=== PATIENT | male | born 1955 | race Caucasian/White ===

== ENCOUNTER → 2018-03-05 | Outpatient (CLI) | payer BC ==
[~2018-03-05] MED LIST: METF10007 PO; OMEP20TA8 PO; SIMV40TA3 PO
--- NOTE | 2018-03-05 14:03 | RAD ---
EXAM: Lumbar spine, 3 views; pelvis and bilateral hips, 5 views. HISTORY: Pain. COMPARISON: None. FINDINGS: Lumbar spine: 3 views of the lumbar spine are obtained. There are 6 nonrib-bearing lumbar vertebral segments or hypoplastic T12 ribs with 5 lumbar segments. For the purposes of this dictation, the last lumbar segment will be considered L5. There is mild levoscoliosis centered at L3. There is degenerative endplate remodeling with disc space narrowing and osteophytosis primarily along the right aspect of L3-L4, corresponding with the level of maximum scoliotic curvature. There is endplate remodeling and Schmorl's node formation at multiple levels. There is facet arthropathy at multiple levels. There are cholecystectomy clips. Pelvis and bilateral hips: A frontal view the pelvis and frontal and frog-leg views of both hips are obtained. There is no fracture, dislocation or subluxation. There is left greater than right marginal acetabular spurring. There is a chronic fragmented spur or os acetabulum on the right. There is decreased right femoral head-neck offset, suggesting chronic hip impingement. There is also a small bump along the left femoral neck which may be due to chronic impingement. IMPRESSION: 1. 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 2. Mild lumbar levoscoliosis. 3. Mild bilateral hip osteoarthritis and findings suggesting a component of chronic hip impingement. Electronically signed by: Karina Casillas MD (03/05/2018 1:59 PM) [id number]
== END | disposition home or self-care (01) ==
LOC: RAD 11:40
PROVIDERS: ATTEND Family Medicine
DX: M47.816 Spondylosis without myelopathy or radiculopathy, lumbar region (principal); M16.0 Bilateral primary osteoarthritis of hip
CPT/HCPCS: 72100; 73521